=== PATIENT | female | born 1980 | race Caucasian/White ===

== ENCOUNTER 2018-05-13 07:27 | Emergency (ER) | payer OTHER ==
[~2018-05-13] VITALS: Ht 162.6 cm; Wt 79.4 kg
[~2018-05-13 07:27] MED LIST: ACCUNEB SO1.25 MG/1 INH; METFORMIN HCL500 MG PO
[2018-05-13] MEDS ORDERED: AMARYL4 MG PO (07:38)
[2018-05-13] MEDS ORDERED: ULTRAM 50MG TAB50 MG PO (08:27)
[2018-05-13 08:36] VITALS: BP 130/79
== END 2018-05-13 08:37 | disposition home or self-care (01) ==
LOC: ER 07:27
DX: S93.602A Unspecified sprain of left foot, initial encounter (principal); J45.909 Unspecified asthma, uncomplicated; Z88.5 Allergy status to narcotic agent; Z88.8 Allergy status to other drugs, medicaments and biological substances; W01.10XA Fall on same level from slipping, tripping and stumbling with subsequent striking against unspecified object, initial encounter; Y93.89 Activity, other specified; Y92.89 Other specified places as the place of occurrence of the external cause; Y99.8 Other external cause status